=== PATIENT | female | born 1990 | race Hispanic/Latino ===

== ENCOUNTER 2024-09-07 15:27 | Emergency (ER) | payer OTHER, SELFPAY ==
[2024-09-07 15:31] VITALS: BP 160/96
--- NOTE | 2024-09-07 15:59 | ED.GENMED ---
History of Present Illness
<Seble Johnson PA-C - Last Filed: 09/07/24 20:31>
General
Chief Complaint: Vaginal Bleeding
Source: patient
Exam Limitations: none
Time Seen by Provider: 09/07/24 15:39
Nursing documentation reviewed up to this point in time: agreed with
History of Present Illness
History of Present Illness:
This a 34-year-old female with no past medical history presents emergency department today with concerns of vaginal bleeding for the past few months. Patient states that she does have a history of irregular menses but states that she is having
particular problems the last 2 months. She reports that she has been bleeding every day. Patient reports that it did start to lighten up and she would only notice blood with wiping after using the bathroom but this past week, and started to become
heavier again. She does note mild intermittent pelvic cramping. She denies any low back pain. She denies any burning with urination. She denies any fevers or chills. She denies any nausea or vomiting. She denies any dizziness or
lightheadedness. She denies any syncopal episodes, denies any chest pain or shortness of breath. She denies any past abdominal surgical history other than . She does not currently have a campus recruiting intern that she follows with.
Review of Systems
<Seble Johnson PA-C - Last Filed: 09/07/24 20:31>
Review of Systems
All Other Systems: ROS reviewed and negative except as documented in HPI and ROS
Phy Exam
<Seble Johnson PA-C - Last Filed: 09/07/24 20:31>
Physical Exam
Physical Exam:
General: Patient is well appearing and in no acute distress; non-toxic
Skin: Warm and dry, no rashes or lesions
Head: Normocephalic, atraumatic
Eyes: Sclera non-icteric. EOMs intact. PERRLA.
Cardiac: Regular rate and rhythm, no murmurs
Peripheral Vascular: No lower extremity swelling or edema
Pulm: Normal respiratory effort, no wheezes, rales, or rhonchi
Abdomen: No abdominal tenderness to palpation
Neuro: CN II-XII intact, no focal neurologic deficits.
Psychiatric: Appropriate mood and affect.
Course
<Seble Johnson PA-C - Last Filed: 09/07/24 20:31>
Orders/Labs/Results
Orders:
Orders
09/07/24 15:58
IV Insert/Care/Rem.- Treatment PRN
US 1st Trimester Urgent
Reason For Exam: heavy vaginal bleeding, intermittent pelvic pain
09/07/24 16:00
, Urine Qualitative Screen [HCG, Urine Qualitative Screen] Urgent
Urinalysis Reflex To Culture Urgent
Test Result ONCE
09/07/24 16:40
Type+Screen Urgent
Beta HCG Quantitative Urgent
Comment: ADD ON
Complete Blood Count/With Diff Urgent
Comprehensive Metabolic Panel Urgent
HCG, Serum Qualitative Screen Urgent
09/07/24 16:55
ABO2 Urgent
BBK Wristband Number:
Associate notified that ABO2 has been ordered: [id number]
Date: 09/07/24
Time: 16:49
Blister Rust Eradicator ID: [id number]
09/07/24 18:41
Add On- LAB Urgent
Tests Added?: serum hcg qualitative
09/07/24 20:06
Add On- LAB Urgent
Tests Added?: hcg quant
Abnormal Lab Results
09/07/24
16:40
RBC 4.13 L 10^6/uL
(4.20-5.40)
Hct 34.7 L %
(37.0-47.0)
Lymphocytes % 19.3 L %
(20.5-51.1)
Carbon Dioxide 20 L mmol/L
(22-30)
Creatinine 0.4 L mg/dL
(0.6-1.0)
09/07/24 16:40
09/07/24 16:40
Vital Signs
Initial and Last Documented VS:
Initial Vital Signs
Temp Pulse Resp BP Pulse Ox
98.3 F 74 20 160/96 98
09/07/24 15:31 09/07/24 15:31 09/07/24 15:31 09/07/24 15:31 09/07/24 15:31
Last Documented Vital Signs
Temp Pulse Resp BP Pulse Ox
98.3 F 63 16 113/70 97
09/07/24 15:31 09/07/24 16:39 09/07/24 16:39 09/07/24 16:39 09/07/24 16:39
<Blaise Sin MD - Last Filed: 09/07/24 17:18>
Orders/Labs/Results
Orders:
Orders
09/07/24 15:58
IV Insert/Care/Rem.- Treatment PRN
US 1st Trimester Urgent
Reason For Exam: heavy vaginal bleeding, intermittent pelvic pain
09/07/24 16:00
, Urine Qualitative Screen [HCG, Urine Qualitative Screen] Urgent
Urinalysis Reflex To Culture Urgent
Test Result ONCE
09/07/24 16:40
Type+Screen Urgent
Beta HCG Quantitative Urgent
Comment: ADD ON
Complete Blood Count/With Diff Urgent
Comprehensive Metabolic Panel Urgent
HCG, Serum Qualitative Screen Urgent
09/07/24 16:55
ABO2 Urgent
BBK Wristband Number:
Associate notified that ABO2 has been ordered: [id number]
Date: 09/07/24
Time: 16:49
Blister Rust Eradicator ID: [id number]
09/07/24 18:41
Add On- LAB Urgent
Tests Added?: serum hcg qualitative
09/07/24 20:06
Add On- LAB Urgent
Tests Added?: hcg quant
Abnormal Lab Results
09/07/24
16:40
RBC 4.13 L 10^6/uL
(4.20-5.40)
Hct 34.7 L %
(37.0-47.0)
Lymphocytes % 19.3 L %
(20.5-51.1)
Carbon Dioxide 20 L mmol/L
(22-30)
Creatinine 0.4 L mg/dL
(0.6-1.0)
09/07/24 16:40
09/07/24 16:40
Vital Signs
Initial and Last Documented VS:
Initial Vital Signs
Temp Pulse Resp BP Pulse Ox
98.3 F 74 20 160/96 98
09/07/24 15:31 09/07/24 15:31 09/07/24 15:31 09/07/24 15:31 09/07/24 15:31
Last Documented Vital Signs
Temp Pulse Resp BP Pulse Ox
98.3 F 63 16 113/70 97
09/07/24 15:31 09/07/24 16:39 09/07/24 16:39 09/07/24 16:39 09/07/24 16:39
Yadylt;Seble Johnson PA-C - Last Filed: 09/07/24 20:31>
MDM/Problems Addressed
Differential Diagnosis Includes:
Abnormal uterine bleeding, menstruation, ectopic , uterine fibroids
MDM/Problems Addressed:
34-year-old female presents emergency department today with concerns of vaginal bleeding for the past few months. She reports that the bleeding has gotten worse past week and now notes that today earlier as morning, she had passage of clots. she
does not have significant pain with this. On exam, she is well-appearing, she is in no acute distress, she is mildly hypertensive but her vitals are otherwise stable. She does not have any other associated symptoms. Will get CBC, CMP type and
screen and send for ultrasound. Will reassess.
On reassessment, patient still feels well and she has no abdominal pain. She states the bleeding has slowed and now she has just spotting. Patient was noted to be . She was unaware of this. Patient is O+ no indication for RhoGAM at this
time. Obstetrics ultrasound demonstrates a single viable intrauterine fetus with estimated gestational age of 8 weeks 6 days with a crush stent implantation/subchorionic hemorrhage measuring 14 x 5 x 13 mm. I did review findings with [facility] [facility]
on-call. OB states that there is no indication for admission at this time advised patient to call the office tomorrow to get a follow-up an appointment promptly. I discussed findings with patient, I asked patient if she would have any trouble
getting an appointment. Patient states that she should not have any problems and will call tomorrow morning. Patient stable for discharge. Return precautions discussed.
Chronic conditions affecting care:
N/A
Acute Exacerbation and/or Progression of Chronic Illness:
N/A
<Seble Johnson PA-C - Last Filed: 09/07/24 20:31>
*Critical Care Note
Total Time (30-74mins, 75-104mins- exclusive of procedures): Not Applicable
ED Attending Note
<Seble Johnson PA-C - Last Filed: 09/07/24 20:31>
-
Portions of this chart may have been created with voice recognition software.� Occasional wrong word or��sound alike� substitutions may have occurred due to the inherent limitations of voice recognition software.
<Blaise Sin MD - Last Filed: 09/07/24 17:18>
ED Attending Note
Patient seen and examined by attending physician: Yes
I performed the substantive portion of visit, reviewed & personally made and approve the management plan that is documented in note by myself or JET.: Yes
ED Attending Note:
I have seen and evaluated the patient with a [id number] encounter. I have spoken to the [PA] and involved in the medical history, the physical exam, medical decision making.
Evaluation and management service: agree unless noted differently below.
Results interpretation: agree unless noted differently below.
34-year-old woman presenting to the emergency department vaginal bleeding. Patient states that she has history of irregular menses however the past 2-month she has been having bleeding every day. Initially it was light and she changes her pad
every 3-4 hours. However today she noticed significant bleeding. No clots. She is not lightheaded or dizzy. No syncopal events. No chest pain or difficulty breathing. She does have some mild cramping. She does have a history of .
Has not seen a campus recruiting intern. No urinary symptoms. No history of easy bleeding or bruising. On exam patient is resting comfortably. Her abdomen is soft nondistended nontender. Will obtain basic blood work and obtain ultrasound. Anticipate
discharge with gynecology follow-up.
Discharge Plan
Departure
Patient Disposition: Home (Routine Discharge)
Date of Disposition: 09/07/24
Time of Disposition: 20:21
Patient with high blood pressure during this ER visit?: Yes
Condition: Good
Discharge Problem:
Vaginal bleeding during
Instructions: Bleeding in Early ED, BLOOD PRESSURE
Referrals:
Allyssa Wellington, DO [Active] - Call in 1-3 days for appt
UNKNOWN - PT DOES,NOT KNOW [Family Provider] -
Activity Restrictions/Additional Instructions:
Please call the attached number tomorrow morning to schedule an appointment with Dr. Wellington's office (OBGYN) as soon as possible. This is important.
You were given a copy of your ultrasound.
PLEASE RETURN EMERGENCY DEPARTMENT SHOULD YOU DEVELOP ABDOMINAL PAIN, RETURN OF YOUR HEAVY BLEEDING OR PASSAGE OF CLOTS, LIGHTHEADEDNESS, DIZZINESS, NAUSEA AND VOMITING, CHEST PAIN OR SHORTNESS OF BREATH, OR ANY OTHER SIGNS OR SYMPTOMS CONCERNING TO
YOU.
Interventions
Interventions:
*Risk Screen - Suicide Last Done: 09/07/24 15:31
*General Assessment Last Done: 09/07/24 15:31
*Neglect/Abuse Screening Last Done: 09/07/24 15:31
ED- Fall Risk Assessment Last Done: 09/07/24 16:29
*ED COVID-19 Vaccine History Last Done: 09/07/24 16:29
ED-Female Genitourinary Assessment Last Done: 09/07/24 16:29
Discharge Date and Time
Print Language: CYMRAES
[2024-09-07 16:39] VITALS: BP 113/70
[2024-09-07 16:50] LABS: % Basophils 0.1 % (0-2); % Immature Granulocytes 0.3 % (0-0.5); % Lymphocytes 19.3 % (20.5-51.1); % Monocytes 4.9 % (1.7-9.3); % Neutrophils 73.4 % (42.2-75.2); Absolute Eosinophils 0.2 10^3/uL (0-0.7); Absolute Lymphocytes 1.7 10^3/uL (1.2-3.4); Absolute Monocytes 0.4 10^3/uL (0.1-0.6); Absolute Neutrophils 6.3 10^3/uL (1.4-6.5); Hematocrit 34.7 % (37.0-47.0); Hemoglobin 12.3 g/dL (12.0-16.0); Mean Corp Hgb Conc. 35.4 g/dL (33.0-37.0); Mean Corpuscular Hgb 29.8 pg (27.0-31.0); Mean Platelet Volume 9.7 fL (7.4-10.4); Nucleated Red Blood Cells % 0 %; Platelet Count 213 10^3/uL (130-400); Red Blood Cell Count 4.13 10^6/uL (4.20-5.40); Red Cell Dist. Width 12.4 % (11.5-14.5); White Blood Cell Count 8.6 10^3/uL (4.8-10.8)
[2024-09-07 17:04] LABS: ALT (SGPT) 29 U/L (0-35); AST (SGOT) 23 U/L (14-36); Albumin 4.1 g/dl (3.5-5.0); Alkaline Phosphatase 59 U/L (38-126); Blood Urea Nitrogen 7 mg/dl (7-17); Calcium 9.2 mg/dl (8.4-10.2); Carbon Dioxide 20 mmol/L (22-30); Chloride 105 mmol/L (98-107); Glucose 92 mg/dl (70-99); Potassium 3.9 mmol/L (3.5-5.1); Sodium 135 mmol/L (135-145); Total Bilirubin 0.2 mg/dl (0.2-1.3); Total Protein 6.8 g/dl (6.3-8.2); eGFR > 60.00
[2024-09-07 19:35] LABS: HCG, Serum Qualitative Screen Positive
[2024-09-07 20:42] VITALS: BP 126/76
== END 2024-09-07 20:44 | disposition home or self-care (01) ==
LOC: EMR 15:27
PROVIDERS: Physician Assistant; EMERGENCY PHYSICIAN Student in an Organized Health Care Education/Training Program
DX: O20.8 Other hemorrhage in early pregnancy (principal); Z3A.08 8 weeks gestation of pregnancy
CPT/HCPCS: 99284; 76801; 80053; 84702; 84703; 85025; 86850; 86900; 86901